=== PATIENT | male | born 1965 | race Caucasian/White ===

== ENCOUNTER 2019-07-30 22:44 | Emergency (ER) | payer BC, SELFPAY ==
[2019-07-30 22:45] VITALS: BP 163/85; PULSE 83; RESP 16; TEMP 36.8; O2SAT 95; BMI 45.4
[2019-07-30 22:56] VITALS: BP 162/90; PULSE 81; RESP 22; O2SAT 96
[2019-07-30] MEDS: Famotidine 200 MG/20 ML MDV 20 MG in 0.9% Normal Saline (Pres. free 8 ML 300 MG IV (23:11)
[2019-07-30] MEDS: MethylPREDNISolone 125 MG/2 ML Vial IV (23:11)
--- NOTE | 2019-07-30 23:32 | ED.DCSUM_ITS ---
- ER Visit Summary Date of Service: 07/30/19 Chief Complaint: Tongue swelling History of Present Illness: The patient is a [address] Arciniega. He is on losartan for his blood pressure and has been for years. He reports that he has tongue swelling that began approximately 6:00 tonight. His last dose of losartan was at 7 PM. Patient reports he had a similar episode approximately 2 months ago that responded to Benadryl. He took 75 mg of Benadryl at 8 PM. Patient denies any change in soap, shampoo, laundry detergent, or fabric softener. No new clothing, bedding, carpeting, or pets. No new medications in the past month. Physical Examination: Vitals: Stable. Afebrile. General: Well-nourished and well-developed. Head: Normocephalic atraumatic. HEENT: Moderate angioedema of the right side of his tongue, mild angioedema of the left side of his tongue. His lips and oropharynx are spared. Neck: Supple, no lymphadenopathy. No JVD. Nontender. Cardiovascular: Regular rate and rhythm. No murmurs. Respiratory: No respiratory distress. Clear to auscultation bilaterally. Abdominal: Soft, nontender, nondistended, normal bowel sounds. No guarding, rebound, or peritoneal signs. Back: Nontender. Extremities: Nontender, no edema. Skin: Normal color, no rash. Neurologic: Alert and oriented ?3. Cranial nerves II through XII are intact. Normal strength and sensation. Psych: Normal affect. Emergency Department Course and Treatment: Patient had an IV placed. He was given Pepcid and Solu-Medrol IV. He was observed over the course of 1.5 hours. He reports his symptoms are actually improving. Treatment Plan: Discussed the patient I think this is most likely due to his losartan. Is instructed not take this anymore. Follow-up his primary care physician 1 to 2 days if not improving and for changes in his blood pressure medications. Return to the emergency department for any worsening symptoms. Disposition: To home in improved and stable condition. Impression: 1. Angioedema on losartan. This note was generated with [employer] software. It may contain incorrect words, spelling, and punctuation that were not noted in review of the chart prior to signing ED Disposition - Plan for ED Patient: Instructions: ED Angioedema Referrals: Kenny Arciniega MD [Primary Care Provider] - 1-2 Days if not improving
[2019-07-30 23:50] VITALS: BP 154/75; PULSE 72; RESP 19; O2SAT 97
[2019-07-31 00:27] VITALS: BP 150/80; PULSE 81; RESP 18; O2SAT 94
== END 2019-07-31 00:33 | disposition home or self-care (01) ==
LOC: ED 23:08
PROVIDERS: Emergency Provider Emergency Medicine; PCP Family Medicine
DX: T78.3XXA Angioneurotic edema, initial encounter (principal); I10 Essential (primary) hypertension; Z79.899 Other long term (current) drug therapy; F17.200 Nicotine dependence, unspecified, uncomplicated
CPT/HCPCS: 96374; 96375; 99283; A4216; J3490

== ENCOUNTER 2019-09-04 01:42 | Emergency (ER) | payer BC, SELFPAY ==
[2019-09-04 01:45] VITALS: BP 140/74; PULSE 72; RESP 20; TEMP 36.1; O2SAT 96; BMI 46.0
[2019-09-04] MEDS: MethylPREDNISolone 125 MG/2 ML Vial IV (02:15)
[2019-09-04] MEDS: DiphenhydrAMINE 50 MG/ML Syringe IV (02:18)
[2019-09-04 02:28] LABS: Absolute Lymphocyte Count 3.06 X10^3/uL (0.83-4.51); Absolute Neutrophil Count 6.1 X10^3/uL (2.0-7.7); Basophil# 0.06 X10^3/uL; Basophil% 0.6 % (0-1); Eosinophil# 0.26 X10^3/uL; Eosinophils% 2.5 % (0-5); Hematocrit 41.5 % (40-54); Hemoglobin 13.1 g/dL (13.0-16.5); Lymphocyte # 3.06 X10^3/ul (4.0); Lymphocyte % 29.1 % (19-41); Mean Corp Hgb Conc 31.6 g/dL (32-36); Mean Corpuscular Hgb 29.5 pg (27.0-32.0); Mean Corpuscular Volume 93.5 fL (80-94); Mean Platelet Vol. 11.2 fl (6.2-12.0); Monocyte# 1.01 X10^3/uL; Monocyte% 9.6 % (0-10); NRBC Flagged by Analyzer 0 % (0-5); Neutrophil # 6.11 X10^3/uL (2.7-7.7); Neutrophil % 57.9 % (47-70); Platelet Count 219 K/mm3 (150-450); RBC Distribution Width CV 14.6 % (11.6-14.6); RBC Distribution Width SD 50.1 fl (35.1-43.9); Red Blood Count 4.44 M/mm3 (4.6-6.2); White Blood Count 10.5 K/mm3 (4.4-11.0)
--- NOTE | 2019-09-04 02:34 | ED.DCSUM_ITS ---
- ER Visit Summary Date of Service: 09/04/19 Chief Complaint: Tongue swelling History of Present Illness: The patient is a [address] Arciniega. He reports that he has swelling of his tongue that began 2 hours ago. States that he had a similar episode last month that was attributed to losartan. He has not taken this since that time. Patient denies any change in soap, shampoo, laundry detergent, or fabric softener. No new clothing, bedding, carpeting, or pets. He reports that his only new medication is colchicine which he began 2 days ago. Has been on this multiple times in the past. Patient reports that he has gout in his right ankle that began 3 days ago. He began the colchicine and states that his pain is gone from a 10 out of 10 severity 5 out of 10 in severity. He reports that he is had this multiple times. He denies any fever, chills, nausea, vomiting, or other complaints. Physical Examination: Vitals: Stable. Afebrile. General: Well-nourished and well-developed. Head: Normocephalic atraumatic. HEENT: Moderate angioedema of his tongue. There is no swelling of the lips or pharynx. Neck: Supple, no lymphadenopathy. No JVD. Nontender. Cardiovascular: Regular rate and rhythm. No murmurs. Respiratory: No respiratory distress. Clear to auscultation bilaterally. Abdominal: Soft, nontender, nondistended, normal bowel sounds. No guarding, rebound, or peritoneal signs. Back: Nontender. Extremities: Nontender, no edema. Skin: Normal color, no rash. Neurologic: Alert and oriented ?3. Cranial nerves II through XII are intact. Normal strength and sensation. Psych: Normal affect. Test Results: Due to a recurrent episode of angioedema blood work was obtained. CBC is normal. Emergency Department Course and Treatment: Patient had an IV placed. He was given Pepcid, Solu-Medrol, and Benadryl IV. He feels much improved. I did have him a prolonged discussion with him that this can also be caused by nifedipine. He reports that he has been on that for approximately 6 years. He had never had a problem until last year. He has no family history of this. I reviewed all of his other medications. Angioedema is not listed as an adverse reaction to any other medication that he is on. Treatment Plan: Patient will be discharged on Zyrtec, Pepcid, and prednisone. Instructed to follow-up with his primary care physician in 1 to 2 days for another exam. Is instructed not to take nifedipine again. Return to the emergency department for any worsening symptoms. Disposition: To home in improved and stable condition. Impression: 1. Angioedema, uncertain cause. 2. Hypertension on nifedipine. This note was generated with [employer] dictation software. It may contain incorrect words, spelling, and punctuation that were not noted in review of the chart prior to signing ED Disposition - Plan for ED Patient: Instructions: ED Angioedema Prescriptions: Prednisone [Deltasone] 60 mg PO DAILY #15 tablet Famotidine [Pepcid] 20 mg PO BID #28 tablet Cetirizine HCl [Zyrtec] 10 mg PO DAILY #14 capsule Referrals: Kenny Arciniega MD [Primary Care Provider] - 1-2 Days if not improving Additional Instructions: Do not take your nifedipine again until you have seen Dr. Arciniega. We refugio blood work to check for hereditary causes of your tongue swelling. Ask Dr. Arciniega to follow-up on this.
[2019-09-04] MEDS: Famotidine 200 MG/20 ML MDV 20 MG in 0.9% Normal Saline (Pres. free 8 ML 300 MG IV (02:35)
[2019-09-04 02:47] VITALS: BP 154/88; PULSE 65; RESP 18; O2SAT 94
[2019-09-04 02:57] LABS: ALB/GLOB Ratio 0.9 RATIO (0.9-2.4); AST(SGOT) 13 U/L (15-37); Alanine Aminotransfer ALT/SGPT 27 U/L (16-61); Albumin, Serum 3.4 g/dL (3.2-5.0); Alkaline Phosphatase 70 U/L (45-117); Anion Gap 5 (5-15); BUN 12 mg/dL (7-18); BUN/Creat Ratio 13.4 RATIO (10-20); Calcium,Total 8.4 mg/dL (8.5-10.1); Chloride 105 mmol/L (98-107); EST Glomerular Filtration Rate 94 mL/min (>60); Est Glom Filt Rate - Afr Amer 114 mL/min (>60); Estimated Creatinine Clearance 99.14 ml/min; Globulin 3.7 g/dL (2.2-4.2); Glucose 184 mg/dL (74-106); Potassium 3.5 mmol/L (3.5-5.1); Protein, Total 7.1 g/dL (6.4-8.2); Sodium Level 140 mmol/L (136-145)
[2019-09-04 03:25] VITALS: BP 151/88; PULSE 66; RESP 16; O2SAT 99
== END 2019-09-04 03:26 | disposition home or self-care (01) ==
PROVIDERS: Emergency Provider Emergency Medicine; PCP Family Medicine
DX: T78.3XXA Angioneurotic edema, initial encounter (principal); I10 Essential (primary) hypertension; M10.9 Gout, unspecified; G47.33 Obstructive sleep apnea (adult) (pediatric); Z79.899 Other long term (current) drug therapy; F17.200 Nicotine dependence, unspecified, uncomplicated
CPT/HCPCS: 80053; 85025; 86160; 96361; 96374; 96375; 99285; J7040; A4216; J3490

== ENCOUNTER 2019-12-18 18:00 | Outpatient (RCR) | payer BC, SELFPAY ==
--- NOTE | 2019-11-29 15:57 | HP.PTEVAL_ITS ---
Patient's Visit Information JOSE LONG is a 54 year old M referred to Physical Therapy by Dr. Kenny Arciniega MD with a diagnosis of L Hip Flexor strain (COLBY 2016). Date of Evaluation: 11/29/19 Physical Therapist: Abdelrahman Odonnell, PT, ATC - Visit Plan Frequency: 2-3x /Week Duration: 4 Weeks Plan: L hip stretching and strengthening, balance and proprio, core stab ex's, nustep, and HEP - Subjective Pt reports his L hip was replaced in 2017. Pt reports approximately one week ago, his hip started to become sore. Pt reports he may have just moved wrong on it. Pt notes he had a posterior approach for his L COLBY. Pt reports most of his pain is in the groin region and ant hip region of his L hip. Pt also notes pain in his HS's at times. 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 Pt Notes no tingling or numbness in L LE. Pt notes occasional sleep difficutly secondary to pain. Pt reports climbing stairs and a ladder are very hard at this time secondary to pain. 0/10 pain at rest, 6/10 pain at worst. - Pain L hip pain Pain Intensity (Out of 10): 0 Pain Intensity Range: 6 - Objective Neuro: B LE sensation is WNL to light touch. B patellar reflex= 1/3. ROM: B LE's are WFL. MMT: L hip flex= 3+/5. All other B LE's 5/5 throughout. Palpation: No direct pain with palpation. No obvious deformity at this time. - Goals Goal 1:: Decrease L hip pain x 50% to aid with sleep Goal Time Frame: 4-6 Weeks Goal 2:: Increase L hip strength x 1 grade to aid with stair negotiation Goal Time Frame: 4-6 Weeks Goal 3:: Increase L hip flexor flexibility x 1 grade to aid with decreasing pain Goal Time Frame: 4-6 Weeks Goal 4:: I with HEP Goal Time Frame: 4-6 Weeks - Rehabilitation Potential Physical Therapy Diagnosis: Pt has L hip pain, weakness, and difficulty with stair negotiation secondary to L COLBY Rehabilitation Potential: Good - Anticipated Interventions Patient/Client Instruction: Educate patient on: Condition, Plan of Care For the Purpose of:: To improve self management Therapeutic Exercise to Include: Strength training, Endurance training, Balance training, Flexibilty training, Gait and locomotor training, Active ROM, Dynamic Lumbar Stabilization For the Purpose of:: To decrease pain, To increase ROM, To improve muscle performance and motor function Cryotherapy (ice pack, ice massage): Yes For the Purpose of:: To decrease pain Thank you for the opportunity to evaluate your patient. For Medicare and Medicare HMO plans, please review the plan of care and approve it. It will need to be FAXED BACK to us at [phone] for Medicare purposes. For Medicare only, by signing this I certify the plan of care. Please let me know if there are questions or concerns regarding this plan of care. Physician Signature: Date:
--- NOTE | 2020-01-24 09:58 | HP.PT.NRP ---
JOSE LONG was seen in my office for initial evaluation on 11/29/19. The following Plan of Care was established for this patient: Initial Frequency: 2-3x /Week Initial Duration: 4 Weeks Patient/Client Instruction: Educate patient on: Condition, Plan of Care For the Purpose of:: To improve self management Therapeutic Exercise to Include: Strength training, Endurance training, Balance training, Flexibilty training, Gait and locomotor training, Active ROM, Dynamic Lumbar Stabilization For the Purpose of:: To decrease pain, To increase ROM, To improve muscle performance and motor function Cryotherapy (ice pack, ice massage): Yes For the Purpose of:: To decrease pain This patient was last seen in our office . Pertinent comments regarding their Physical therapy will appear below: Pt was treated for 4 PT visits for L hip pain through the date of 12/18/19. Pt has not returned through todays date and is discontinued at this time. At this point I will be discontinuing this patient from physical therapy. I would be happy to see this patient again in the future if found appropriate by the physician. Thank you! Abdelrahman Odonnell, PT, ATC
== END 2019-12-18 19:00 | disposition home or self-care (01) ==
LOC: PT 18:00
PROVIDERS: PCP Family Medicine; Referring Provider Family Medicine; Visit Provider Family Medicine
DX: M76.892 Other specified enthesopathies of left lower limb, excluding foot (principal); Z96.642 Presence of left artificial hip joint
CPT/HCPCS: 97110; 97161

== ENCOUNTER 2020-01-05 23:44 | Emergency (ER) | payer BC, SELFPAY ==
[2020-01-05 23:44] VITALS: BP 192/94; PULSE 78; RESP 17; TEMP 36.7; O2SAT 94; BMI 46.3
[2020-01-05] MEDS: DiphenhydrAMINE 50 MG/ML Syringe IV (23:52)
[2020-01-05] MEDS: MethylPREDNISolone 125 MG/2 ML Vial IV (23:53)
[2020-01-05] MEDS: Famotidine 200 MG/20 ML MDV 20 MG in 0.9% Normal Saline (Pres. free 8 ML 300 MG IV (23:59)
[2020-01-06] VITALS: PULSE 75; RESP 18; O2SAT 96
[2020-01-06 02:03] VITALS: BP 153/86; PULSE 79; RESP 16; O2SAT 93
[2020-01-06 03:25] VITALS: BP 153/86; PULSE 77; RESP 18; O2SAT 98
--- NOTE | 2020-01-06 03:25 | ED.VISSUMM ---
- ER Visit Summary Date of Service: 01/06/20 Chief Complaint: Allergic reaction History of Present Illness: The patient is a 55 M who presents with an allergic reaction that began today. Patient states he had something with chicory in it. Patient states that he is allergic to ragweed and thinks that the chicory may have caused an allergic reaction. Patient states that his swelling is localized to his tongue. Patient denies any hives. Patient admits to some mild shortness of breath. Patient denies any fevers or chills. Patient denies any chest pain. Physical Examination: Vital signs are stable. Patient is afebrile. Patient is in no acute distress. Oral mucosa is pink and moist. There is angioedema of the tongue. Neck is supple. Trachea is midline. Airway is patent. There is no sublingual edema or evidence of Roly angina. Heart was regular rate and rhythm. Lungs are clear and equal bilaterally. Abdomen is soft. Bowel sounds are normal. There is no tenderness. Cranial nerves II through XII are intact. There are no focal motor or sensory deficits. Emergency Department Course and Treatment: Patient was given a dose of subcu epinephrine initially. Patient was given Solu-Medrol, Pepcid, and Benadryl. Swelling is improving. Patient was observed in the emergency department for approximately 5-1/2 hours. Patient's angioedema continued to improve. Patient feels better and wants to go home. Patient will be instructed to follow-up with his primary care physician in 5 to 7 days. Patient understands and is agreeable with the plan. All questions were answered. Disposition: Discharge home Impression: 1. Angioedema This note was generated with [employer] dictation software. It may contain incorrect words, spelling, and punctuation that were not noted in review of the chart prior to signing ED Disposition - Plan for ED Patient: Disposition: Home or Assisted Living Diagnosis: Angioedema Instructions: ED Angioedema Prescriptions: predniSONE tablet 60 mg PO DAILY #15 tab Prescription Printed Referrals: Kenny Arciniega MD [Primary Care Provider] - 3-5 Days
[2020-01-06 05:11] VITALS: BP 153/86; PULSE 80; RESP 16; O2SAT 94
[2020-01-06 05:35] VITALS: BP 153/86; PULSE 72; RESP 18; O2SAT 97
== END 2020-01-06 05:36 | disposition home or self-care (01) ==
PROVIDERS: Emergency Provider Emergency Medicine; PCP Family Medicine
DX: T78.3XXA Angioneurotic edema, initial encounter (principal); E66.9 Obesity, unspecified; I10 Essential (primary) hypertension; M10.9 Gout, unspecified; E11.40 Type 2 diabetes mellitus with diabetic neuropathy, unspecified; G47.33 Obstructive sleep apnea (adult) (pediatric); Z79.84 Long term (current) use of oral hypoglycemic drugs; Z79.899 Other long term (current) drug therapy; Z72.0 Tobacco use
CPT/HCPCS: 96365; 96375; 99284; A4216; J3490

== ENCOUNTER 2020-07-17 15:07 | Outpatient (RCR) | payer BC, SELFPAY | END 2020-09-29 23:59 | LOC: IMMUN 15:07 | PROVIDERS: PCP Family Medicine; Visit Provider Family Medicine | DX: Z23 Encounter for immunization (principal) | CPT/HCPCS: 0001A; 0002A; 91300 ==

== ENCOUNTER 2021-04-28 10:53 | Outpatient (CLI) | payer BC, SELFPAY | END 2021-04-28 23:59 | disposition short-term general hospital (02) | LOC: LABSPEC 10:56 | PROVIDERS: PCP Family Medicine; Visit Provider Physician Assistant Surgical | DX: Z00.00 Encounter for general adult medical examination without abnormal findings (principal) ==